=== PATIENT | male | born 1975 | race Caucasian/White ===

== ENCOUNTER 2017-10-31 04:19 | Emergency (ER) | payer OTHER ==
[2017-10-31] MEDS ORDERED: MORPHINE SULFATE 4 MG/ML SYRINGE IVP STA (04:31)
[2017-10-31 04:32] VITALS: RESP 18
[2017-10-31] MEDS ORDERED: KETOROLAC 30 MG/ML 1 ML VIAL IVP STA (04:32)
[2017-10-31] MEDS ORDERED: ONDANSETRON 4 MG/2 ML VIAL IVP STA (04:33)
--- NOTE | 2017-10-31 05:19 | XR ---
EXAM: XR Chest, 2 Views CLINICAL HISTORY: Pain TECHNIQUE: Frontal and lateral views of the chest. COMPARISON: No relevant prior studies available. FINDINGS: Lungs: Unremarkable. No consolidation. Pleural space: Unremarkable. No pneumothorax. Heart: Unremarkable. No cardiomegaly. Mediastinum: Unremarkable. Bones/joints: No acute osseous abnormality. IMPRESSION: No radiographic evidence of acute traumatic thoracic injury.
--- NOTE | 2017-10-31 05:19 | XR ---
EXAM: XR Left Shoulder Complete, 2 or More Views CLINICAL HISTORY: Trauma, pain TECHNIQUE: Two or more views of the left shoulder. COMPARISON: No relevant prior studies available. FINDINGS: Bones/joints: No acute fracture or dislocation. Soft tissues: Unremarkable. IMPRESSION: No acute fracture or dislocation.
--- NOTE | 2017-10-31 05:23 | XR ---
EXAM: XR Thoracic Spine, 4 or More Views CLINICAL HISTORY: Trauma, pain TECHNIQUE: Frontal, lateral and oblique views of the thoracic spine. COMPARISON: No relevant prior studies available. FINDINGS: Vertebrae: No acute fracture or malalignment. Disc spaces: Mild degenerative changes. Soft tissues: Unremarkable. IMPRESSION: No acute fracture or malalignment.
--- NOTE | 2017-10-31 06:28 | ED ---
General Adult HPI - General Chief complaint: Wound/Laceration Stated complaint: [facility] Time Seen by Provider: 10/31/17 04:22 Source: EMS Mode of arrival: EMS Limitations: no limitations - History of Present Illness Initial comments: 31 years old male he was at work around Tonight He Got Pinned between a Hard Surface by a Moving [employer] Seen and He Has a Laceration on Back of His Upper 2 Middle Back Is Complaining about Left Shoulder Pain Is Complaining about Pain in the Upper Back and Some Shortness of Breath. He Denies Any Head Injury No Neck Injury No Loss of Consciousness No Abdominal Pain No Frequency Urgency Dysuria No Symptoms of TIA or CVA him a patient's tetanus is up-to-date he said he got 2 years ago - Related Data Previous Rx's Medication Instructions Recorded HYDROcodone/APAP 7.5-325MG [Cuttyhunk 1 tab PO Q6HR PRN #16 tab 10/31/17 7.5-325] Ibuprofen [Motrin] 800 mg PO Q8HR #30 tab 10/31/17 Allergies Allergy/AdvReac Type Severity Reaction Status Date / Time No Known Allergies Allergy Verified 10/31/17 04:32 Review of Systems ROS Statement: Those systems with pertinent positive or pertinent negative responses have been documented in the HPI. ROS Other: All systems not noted in ROS Statement are negative. Past Medical History Past Medical History: Hypertension History of Any Multi-Drug Resistant Organisms: None Reported Additional Past Surgical History / Comment(s): shoulder surgery (2015 & 2013), hand surgery(2013), elbow surgery (1999), Past Psychological History: No Psychological Hx Reported Smoking Status: Current every day smoker Past Alcohol Use History: None Reported Past Drug Use History: None Reported General Exam - General Exam Comments Initial Comments: General: The patient is awake and alert, in no distress, and does not appear acutely ill. Skin: Skin is warm and dry and no rashes or lesions are noted. Noticed a superficial skin injury about 12 inches long, it's only affecting the epidermis is a noticed another very similar skin injury inferior to the back which is about 10 inches long Eye: Pupils are equal, round and reactive to light, extra-ocular movements are intact; there is normal conjunctiva bilaterally. Ears, nose, mouth and throat: There are moist mucous membranes and no oral lesions. Neck: The neck is supple, there is no tenderness or JVD. Cardiovascular: There is a regular rate and rhythm. No murmur, rub or gallop is appreciated. Respiratory: To auscultation bilateral, no wheezing no rhonchi no distress respiratory patino noticed Gastrointestinal: Soft, non-distended, non-tender abdomen without masses or organomegaly noted. There is no rebound or guarding present. Bowel sounds are unremarkable. Back: There is no tenderness to palpation in the midline. There is no obvious deformity. Musculoskeletal: Left shoulder is tender to palpate over the deltoid area, do not suspect any fracture or dislocation because humeral head just symmetrical bilateral no neurovascular compromise noticed decreased range of motion as well as internal and external rotation is concerned on the left shoulder Neurological: CN II-XII intact, Cranial nerves III through XII are intact. There are no obvious motor or sensory deficits. Coordination appears grossly intact. Speech is normal. Psychiatric: Cooperative, appropriate mood & affect, normal judgment. Limitations: no limitations Course Vital Signs 10/31/17 04:24 Temperature 98.1 F Pulse Rate 82 Respiratory 18 Rate Blood Pressure 156/79 O2 Sat by Pulse 98 Oximetry Patient's chest x-ray, thoracic spine x-ray and left shoulder x-ray studies were reviewed, those are unremarkable findings were discussed with the patient he be gone home on a Motrin [id number]) the milligrams 3 times a day and Cuttyhunk's for next 2-3 days and then follow with her family doctor place Disposition Clinical Impression: Back injury, Laceration Disposition: HOME SELF-CARE Condition: Good Instructions: Laceration (ED) Prescriptions: HYDROcodone/APAP 7.5-325MG [Cuttyhunk 7.5-325] 1 tab PO Q6HR PRN #16 tab PRN Reason: Pain Ibuprofen [Motrin] 800 mg PO Q8HR #30 tab Referrals: Nonstaff,Physician [Primary Care Provider] - 1-2 days
[2017-10-31 06:54] VITALS: BP 138/85; PULSE 77; TEMP 97.8
== END 2017-10-31 06:58 | disposition home or self-care (01) ==
LOC: EC 04:19
DX: S21.201A Unspecified open wound of right back wall of thorax without penetration into thoracic cavity, initial encounter (principal); S21.202A Unspecified open wound of left back wall of thorax without penetration into thoracic cavity, initial encounter; R06.02 Shortness of breath; M25.512 Pain in left shoulder; F17.200 Nicotine dependence, unspecified, uncomplicated; Z98.890 Other specified postprocedural states; W31.89XA Contact with other specified machinery, initial encounter; Y92.69 Other specified industrial and construction area as the place of occurrence of the external cause; Y99.0 Civilian activity done for income or pay
CPT/HCPCS: 72072; 73030; 71046; 99284; 96374; 96375 ×2; J2270; J2405; J1885

== ENCOUNTER → 2017-11-05 | Outpatient (CLI) | payer OTHER ==
--- NOTE | 2017-11-05 08:36 | MR ---
EXAMINATION TYPE: MR shoulder LT wo con DATE OF EXAM: 11/05/2017 8:12 AM COMPARISON: NONE HISTORY: Left shoulder pain TECHNIQUE: Multiplanar multispin echo imaging of the left shoulder was performed. FINDINGS: Rotator cuff : Evidence of prior rotator cuff repair. Multiple metallic fragments noted. Thinning of the supraspinatus tendon with partial undersurface tear noted measuring 1.1 cm in length. No evidence for full-thickness tear at this time. The remaining constituents of the rotator cuff are grossly int act. Bursa: No bursal effusion or thickening is seen. Musculature: There is no muscular tear, contusion, or atrophy. Acromioclavicular joint : No evidence for impingement. Moderate degenerative change AC joint. Osseous structures : There are no fractures or regions of abnormal bone marrow signal intensity. Long biceps tendon : There is near complete rupture of the biceps tendon with only a few fibers remai shyann intact. Surrounding fluid is noted. Glenohumeral Joint fluid : There is no glenohumeral joint effusion. Cartilage and Bone : No focal hyaline cartilage defects are noted. No Hill-Sachs, reverse Hill-Sachs, or bony Bankart lesions are seen. Labrum : There are no SLAP or soft tissue Bankart lesions. No paralabral cysts are seen. OTHER FINDINGS : none IMPRESSION: 1. Near complete rupture of the biceps tendon with only a few fibers remaining intact. Surrounding os seous tendon fluid. 2. Thinning of the supraspinatus tendon with partial undersurface tear noted measuring 1.1 cm in ifeanyi th. No evidence for full-thickness tear at this time. 3. Prior surgical intervention about the left shoulder.
== END | disposition home or self-care (01) ==
LOC: RADMRIMAIN 07:29
PROVIDERS: ATTEND Emergency Medicine
DX: M75.102 Unspecified rotator cuff tear or rupture of left shoulder, not specified as traumatic (principal); S46.212A Strain of muscle, fascia and tendon of other parts of biceps, left arm, initial encounter; Z98.890 Other specified postprocedural states